=== PATIENT | male | born 1950 | race Caucasian/White ===

== ENCOUNTER 2021-04-03 13:14 | Outpatient (CLI) | payer MEDICARE ==
[2021-04-03 23:23] LABS: SARS-CoV-2 PCR by NAA Not Detected (NotDetected)
== END 2021-04-03 13:15 | disposition home or self-care (01) ==
LOC: CSHLAB 13:14
PROVIDERS: ATTEND Specialist
DX: Z01.812 Encounter for preprocedural laboratory examination (principal); Z20.822 Contact with and (suspected) exposure to COVID-19
CPT/HCPCS: U0003; U0005

== ENCOUNTER 2021-04-08 07:11 | Day surgery (SDC) | payer MEDICARE ==
[2021-04-08 08:16] VITALS: BP 125/83
[2021-04-08 08:17] VITALS: BMI 33.7
[2021-04-08] MEDS ORDERED: FLU VACC QS2021-22(65YR UP)/PF 240 MCG/0.7 ML SYRINGE IM ONE (08:45)
[2021-04-08] MEDS ORDERED: PROPOFOL 20 ML ONE (08:58)
== END 2021-04-08 09:55 | disposition home or self-care (01) ==
LOC: CSHCCL 07:11
PROVIDERS: ATTEND Specialist
DX: I48.11 Longstanding persistent atrial fibrillation (principal); Z79.01 Long term (current) use of anticoagulants; E78.5 Hyperlipidemia, unspecified; I10 Essential (primary) hypertension; G47.33 Obstructive sleep apnea (adult) (pediatric); E03.9 Hypothyroidism, unspecified; Z86.718 Personal history of other venous thrombosis and embolism; Z86.711 Personal history of pulmonary embolism; F17.210 Nicotine dependence, cigarettes, uncomplicated; I25.2 Old myocardial infarction; Z79.899 Other long term (current) drug therapy
CPT/HCPCS: 92960; 93005; 93010; 93312; J2704